=== PATIENT | male | born 1975 | race Caucasian/White ===

== ENCOUNTER → 2021-11-11 | Outpatient (CLI) | payer OTHER ==
[~2021-11-11] MED LIST: DOXYCYCLINE HY100 MG PO
[2021-11-12 12:15] LABS: THYROXINE (T4) 7.7 ug/dL (4.5-12.0); TSH 2.29 uIU/mL (0.450-4.500)
== END ==
LOC: LAB 12:18
PROVIDERS: Nurse Practitioner Family
DX: R07.9 Chest pain, unspecified (principal); R06.02 Shortness of breath; R53.82 Chronic fatigue, unspecified
CPT/HCPCS: 36415; 71046; 84436; 84443; 85652; 86140